=== PATIENT | female | born 1940 | race Caucasian/White ===

== ENCOUNTER 2023-10-30 00:55 | Emergency (ER) | payer MEDICARE ==
[~2023-10-30] VITALS: Ht 162.6 cm; Wt 68.2 kg
[2023-10-30 00:57] VITALS: TEMP 98.5
[2023-10-30] MEDS ORDERED: NS 1,000 ML IV ONE (01:15)
[2023-10-30] MEDS ORDERED: ceFAZolin 1 G in Water For Injection,Sterile 10 ML IV ONE (01:15)
[2023-10-30] MEDS ORDERED: Ondansetron 4 MG/2 ML VIAL IV ONE (01:15)
[2023-10-30] MEDS ORDERED: fentaNYL 50 MCG/ML 2 ML VIAL IV ONE ×2 (01:15→01:45)
[2023-10-30 01:55] LABS: BASO # 0.1 K/mm3 (0.0-0.2); BASO % 0.8 % (0.0-2.0); EOS # 0.2 K/mm3 (0.0-0.7); EOS % 2.1 % (0.0-4.0); GRAN # 6.5 K/mm3 (1.4-6.5); GRAN % 66.2 % (42.2-75.2); HEMATOCRIT 37.1 % (37.0-47.0); HEMOGLOBIN 12.4 g/dl (12.5-16.0); LYMPH % 19.8 % (20.0-51.0); MEAN CELL VOLUME 107 fl (80.0-100.0); MEAN CORPUSCULAR HEMOGLOBIN 36 pg (27-31); MEAN CORPUSCULAR HGB CONC 33 g/dl (33.0-37.0); MEAN PLATELET VOLUME 10.2 fl (7.4-10.4); MONO % 10.3 % (1.7-9.3); PLATELET COUNT 193 K/mm3 (130-400); RED BLOOD COUNT 3.47 M/mm3 (4.10-5.30); REDCELL DISTRIBUTION WIDTH-CV 13.8 % (11.5-14.5)
[2023-10-30 02:02] LABS: PROTHROMBIN TIME 10.7 SECONDS (9.7-12.8)
[2023-10-30 02:09] LABS: BILIRUBIN,TOTAL 0.3 mg/dL (0.2-1.2); CREATININE, serum 1.1 mg/dL (0.57-1.11); POTASSIUM 3.7 mmol/L (3.5-4.5); TOTAL PROTEIN 6.8 gm/dL (6.2-8.1)
[2023-10-30] MEDS ORDERED: Morphine 4 MG/ML VIAL IV ONE (02:45)
[2023-10-30 04:00] VITALS: BP 134/78; PULSE 84
== END 2023-10-30 04:15 | disposition short-term general hospital (02) ==
LOC: COL.ER 00:55
PROVIDERS: Emergency Medicine
DX: S82.851B Displaced trimalleolar fracture of right lower leg, initial encounter for open fracture type I or II (principal); S82.51XB Displaced fracture of medial malleolus of right tibia, initial encounter for open fracture type I or II; D64.9 Anemia, unspecified; R73.9 Hyperglycemia, unspecified; W10.9XXA Fall (on) (from) unspecified stairs and steps, initial encounter; Y92.009 Unspecified place in unspecified non-institutional (private) residence as the place of occurrence of the external cause
CPT/HCPCS: J0690; J2270; J2405; J2543; J2704; J3010; J7030